=== PATIENT | female | born 1995 | race Hispanic/Latino ===

== ENCOUNTER 2017-04-21 02:55 | Emergency (ER) | payer OTHER ==
--- NOTE | 2017-04-21 03:35 | ED PDOC ---
HPI: General Adult History Per: Patient History/Exam Limitations: no limitations Onset/Duration Of Symptoms: Days <Tatiana Lopez - Last Filed: 04/21/17 05:17> <Marek Tyson - Last Filed: 04/21/17 06:49> Time Seen by Provider: 04/21/17 03:09 Chief Complaint (Nursing): Flu-like Symptoms Additional Complaint(s): CC: I am not feeling well HPI: 21 YO Female with PMH of asthma presents to [facility] ED for fevers, headache x 1 day. Pt states that yesterday pt woke up feeling sick, with headache, fevers and back pain. Pt states that she is not able to move her head down because that causes pain, pt also had photophobia. Denies chest pain, palpatations, dyspnea, n/v/d/c. Of note, pt was seen by a MD yesterday where they did her flu swab and it was neg. She was prescribed amox-cluvnate, which she started taking yesterday. Last took advil around 2AM. PMH: asthma SurgHx: tonsillectomy FH: denies SH: occ ETOH, no smoking, no illict drug use. Allergies: NKDA Meds: advil and amox-clavulanate (Tatiana Lopez) Past Medical History - Medical History PMH: No Chronic Diseases - Surgical History Surgical History: No Surg Hx - Family History Family History: States: No Known Family Hx - Living Arrangements Living Arrangements: With Family - Social History Current smoker - smoking cessation education provided: No Alcohol: Occasional Drugs: Denies <Tatiana Lopez - Last Filed: 04/21/17 05:17> <Marek Tyson - Last Filed: 04/21/17 06:49> Vital Signs: Last Vital Signs Temp 98.0 F 04/21/17 05:25 Pulse 92 H 04/21/17 05:25 Resp 18 04/21/17 05:25 BP 123/67 04/21/17 05:25 Pulse Ox 98 04/21/17 05:25 - Home Medications Home Medications: Ambulatory Orders Medication Instructions Recorded Oseltamivir [Tamiflu] 75 mg PO BID #10 cap 04/21/17 - Allergies Allergies/Adverse Reactions: Allergies Allergy/AdvReac Type Severity Reaction Status Date / Time No Known Allergies Allergy Verified 04/21/17 03:14 Review of Systems Constitutional: Positive for: Fever, Malaise. Negative for: Chills Cardiovascular: Negative for: Chest Pain, Palpitations Respiratory: Positive for: Cough (occasional dry ). Negative for: Shortness of Breath Gastrointestinal: Negative for: Nausea, Vomiting, Abdominal Pain, Diarrhea Musculoskeletal: Positive for: Back Pain Neurological: Negative for: Weakness, Numbness <JessicaTatiana - Last Filed: 04/21/17 05:17> Physical Exam - Physical Exam Appears: Positive for: No Acute Distress Head Exam: Positive for: ATRAUMATIC Skin: Positive for: Warm, Dry Eye Exam: Positive for: Normal appearance, EOMI ENT: Positive for: Normal ENT Inspection, Sinus Pain/Drainage, Other (Bilateral sinus tenderness ). Negative for: Nasal Congestion Neck: Positive for: Normal, Painless ROM Cardiovascular/Chest: Positive for: Regular Rate, Rhythm. Negative for: Murmur Respiratory: Positive for: Normal Breath Sounds. Negative for: Crackles, Wheezing Gastrointestinal/Abdominal: Positive for: Normal Exam, Bowel Sounds, Soft. Negative for: Tenderness Back: Positive for: Normal Inspection Extremity: Positive for: Normal ROM Neurologic/Psych: Positive for: Alert <JessicaTatiana - Last Filed: 04/21/17 05:17> - Physical Exam Appears: Positive for: Non-toxic Eye Exam: Positive for: Other (no photophobia) Neck: Positive for: Supple <Marek Tyson - Last Filed: 04/21/17 06:49> - Laboratory Results Result Diagrams: 04/21/17 04:41 04/21/17 04:41 - ECG ECG: Positive for: Interpreted By Or ECG Rhythm: Positive for: Sinus Rhythm O2 Sat by Pulse Oximetry: 100 <JessicaTatiana - Last Filed: 04/21/17 05:17> - Laboratory Results Result Diagrams: 04/21/17 04:41 04/21/17 04:41 <Marek Tyson - Last Filed: 04/21/17 06:49> - ECG Interpretation Of ECG: Sinus tachycardia with rate of 116, no acute ST changes (Jessica,Tatiana) - Progress ED Course And Treament: 21 YO Female with PMH of asthma presents to [facility] ED for headache, and fever. --cbc --UA --flu a and B --IV fluids --Tylenol --toradol --lactate --urine preg --urine dip --blood culture cbc sig for leukopenia, wbc 2.9, lactic acid neg Urine preg neg cmp wnl Ua concentrated with rbc, epithelial cells and moderate calcium oxalate crystals. Pt feels better with IV fluids, and meds Pt is currently afebrile. Repeat temp is 98. Will d/c home with tamiflu. continue augmentin and take tylenol for fevers prn. Follow up with PMD Plan discussed with pt and pt agrees. (Tatiana Lopez) Medical Decision Making <Tatiana Lopez - Last Filed: 04/21/17 05:17> <Marek Tyson - Last Filed: 04/21/17 06:49> Medical Decision Makin yo female with sinusitis and flu like symptoms; nonmeningeal exam; (+)B/L maxillary sinus tenderness. Work up WNL. Patient reports marked improvement after Toradol. Will discharge with Tamiflu and advised to continue Augmentin for sinusitis. (Marek Tyson) Disposition - Disposition Disposition: Routine/Home Disposition Time: 05:20 <Tatiana Lopez - Last Filed: 04/21/17 05:17> <Marek Tyson - Last Filed: 04/21/17 06:49> - Clinical Impression Clinical Impression: Influenza, Sinusitis - Disposition Condition: STABLE Prescriptions: Oseltamivir [Tamiflu] 75 mg PO BID #10 cap Instructions: Sinusitis (ED), Influenza (ED) Forms: [employer] (J[place]ican)
[2017-04-21] MEDS ORDERED: Sodium Chloride 0.9% 1,000 ML IV STA (03:47)
[2017-04-21 03:49] VITALS: RESP 18; BMI 23.2
[2017-04-21 04:46] LABS: BASO % 0.3 % (0.0-2.0); EOS % 0.1 % (0.0-4.0); HEMOGLOBIN 12.4 g/dL (12.0-16.0); LYMPH # 0.2 K/uL (1.0-4.3); LYMPH % 8.1 % (20.0-40.0); MEAN CELL VOLUME 83.7 fl (81.0-99.0); MEAN CORPUSCULAR HEMOGLOBIN 27.3 pg (27.0-31.0); MEAN CORPUSCULAR HGB CONC 32.7 g/dL (33.0-37.0); MEAN PLATELET VOLUME 8.7 fl (7.2-11.7); MONO # 0.2 K/uL (0.0-0.8); MONO % 7.9 % (0.0-10.0); NEUT # 2.4 K/uL (1.8-7.0); NEUT % 83.6 % (50.0-75.0); NRBC % 0.1 % (0.0-0.0); PLATELET COUNT 145 K/uL (130-400); RBC 4.55 Mil/uL (3.80-5.20); RED CELL DISTRIBUTION WIDTH 13.8 % (11.5-14.5); WHITE BLOOD COUNT 2.9 K/uL (4.8-10.8)
[2017-04-21 04:57] LABS: ALB/GLOB RATIO 1.1 (1.0-2.1); ALBUMIN 3.7 g/dL (3.5-5.0); ALT/SGPT 32 U/L (9-52); AST/SGOT 28 U/L (14-36); BLOOD UREA NITROGEN 9 mg/dl (7-17); CALCIUM 8.8 mg/dL (8.4-10.2); GFR AFRICAN-AMERICAN > 60; GFR NON-AFRICAN AMERICAN > 60
[2017-04-21 05:03] LABS: SQUAMOUS EPITHIAL 17 /hpf (0-5); URINE BILIRUBIN NEGATIVE (NEGATIVE); URINE BLOOD NEGATIVE (NEGATIVE); URINE CALCIUM OXALATE CRYSTALS MOD /hpf (<OCC); URINE CLARITY CLOUDY (Clear); URINE COLOR YELLOW (YELLOW); URINE GLUCOSE (UA) NEG (Normal); URINE LEUKOCYTE ESTERASE TRACE Leu/uL (Negative); URINE NITRATE NEGATIVE (NEGATIVE); URINE PROTEIN 30 mg/dL (NEGATIVE)
[2017-04-21 05:26] VITALS: BP 123/67; PULSE 92; TEMP 98; O2SAT 98
[2017-04-21 06:11] LABS: BANDS 3 % (0-2); EOSINOPHIL 1 % (0-7); LYMPHOCYTE 10 % (20-50); MONOCYTE 8 % (0-10); NEUTROPHIL 68 % (42-75); TOTAL CELLS COUNTED 100
[2017-04-21 06:15] LABS: PLATELET ESTIMATE NORMAL (NORMAL)
== END 2017-04-21 05:29 | disposition home or self-care (01) ==
LOC: H.ER 02:55
DX: J32.9 Chronic sinusitis, unspecified (principal); J45.909 Unspecified asthma, uncomplicated
CPT/HCPCS: 80053; 81003; 81025; 83605; 85025; 87040; 87804; 96361; 96374; 99283; J1885; J7040